=== PATIENT | male | born 1995 | race Caucasian/White ===

== ENCOUNTER 2021-06-12 19:09 | Emergency (ER) | payer OTHER, SELFPAY ==
[2021-06-12 19:15] VITALS: BP 134/85; PULSE 91; RESP 16; TEMP 36.5; O2SAT 99; BMI 17.6
--- NOTE | 2021-06-12 19:42 | HMH.EDEYEP ---
ED Disposition Clinical Impression: Corneal abrasion Qualifiers: Encounter type: initial encounter Laterality: left Qualified Code(s): S05.02XA - Injury of conjunctiva and corneal abrasion without foreign body, left eye, initial encounter Disposition: Home, Self-Care Condition on Discharge: Good Instructions: DI for Eye Pain Prescriptions: Erythromycin Base [Erythromycin 1gm opth ointment] 1 applicatio OP QID 5 Days #3.5 gm Transmission Status: Pending to [facility] Referrals: Provider,Referral, [Primary Care Provider] - [facility] [Other] - Critical Care Critical Care Time: No Attestation: On 06/12/21, the high probability of a clinically significant, sudden or life threatening deterioration of the following system(s) required my full and direct attention, intervention and personal management. The time I documented below is in addition to time spent performing reported procedures but includes the following listed in this critical care notation. Medical Decision Making - Medical Records Medical records reviewed: Yes: I reviewed the patient's medical records. - Sean Inquiry Pt receiving controlled substance: No Vital Signs: 06/12/21 19:15 Temperature 97.7 F Temperature Source Oral Pulse Rate [Right] 91 H Respiratory Rate 16 Blood Pressure [Right Arm] 134/85 Blood Pressure Mean [Right Arm] 101 Blood Pressure Source [Right Arm] Automatic Cuff 02 Sat by Pulse Oximetry 99 Oxygen Delivery Method Room Air - Reevaluation(s) Time: 19:44 Reevaluation #1: Patient tolerated procedure well. No foreign body was removed. Evidence of small corneal abrasion. Antibiotic ointment applied. Patient needs follow-up with eye care and 24 hours. Given strict return precautions. Verbalized understanding. Medical Decision Narrative: 45-year-old male presenting with some pain in his left eye. Concern for foreign body. Eye exam will be performed. Tetanus up-to-date. Eye Problem HPI - General Chief complaint: Eye Problems Stated complaint: foreign object in his left eye Time Seen by Provider: 06/12/21 19:20 Mode of Arrival: Family Vehicle Limitations: vision Description of Symptoms (Recalled from ER Triage Doc. 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 Pt states he feels like something is still inside and scratching . There is redness and tearing to left eye. No visible FB noted. Pt states he is far sided and is supposed to wear prescription glasses although he broke them. L eye 20/100 and R eye 20/70. Pt has not used any medications. - History of Present Illness HPI Narrative: Is a 25-year-old male presented to the emergency department with some pain in his left. He states that he was working on his brakes when he felt something go into his. Is been having some pain since then. He is not having any significant pain in vision. He states that he is just having pain when he opens his. He denies any headache or focal weakness. No other injuries sustained. Tetanus up-to-date. No chest pain or shortness of breath and abdominal pain or vomiting. - Related Data Previous Rx's Medication Instructions Recorded Erythromycin Base [Erythromycin 1 applicatio OP QID 5 Days #3.5 gm 06/12/21 1gm opth ointment] Allergies Allergy/AdvReac Type Severity Reaction Status Date / Time No Known Allergies Allergy Unverified 09/14/17 14:56 [facility] History - Hepatitis A Screen Drug use history?: No High risk sexual behaviors?: No History of sexually transmitted infection?: No Currently employed?: No Childcare worker?: No Do you have indoor plumbing?: Yes Do you have electricity?: Yes Attestation statement:: This patient has been screened for Hepatitis A risk factors. I have reviewed the patient's past medical history: Yes ROS Obtained: Yes All systems reviewed & no additional complaints
[2021-06-12 19:56] VITALS: BP 128/79; PULSE 88; RESP 16; TEMP 36.6; O2SAT 99
== END 2021-06-12 19:59 | disposition home or self-care (01) ==
PROVIDERS: Emergency Provider Emergency Medicine
DX: S05.02XA Injury of conjunctiva and corneal abrasion without foreign body, left eye, initial encounter (principal)
CPT/HCPCS: 99282

== ENCOUNTER 2021-09-09 10:52 | Emergency (ER) | payer SELFPAY ==
[2021-09-09 10:53] VITALS: BP 136/84; PULSE 82; RESP 14; TEMP 36.6; O2SAT 99; BMI 21.0
--- NOTE | 2021-09-09 11:25 | HMH.EDGENADL ---
ED Disposition Clinical Impression: Lumbar strain Qualifiers: Encounter type: initial encounter Qualified Code(s): S39.012A - Strain of muscle, fascia and tendon of lower back, initial encounter Disposition: Home, Self-Care Condition on Discharge: Good Instructions: DI for Nausea -- Adult, DI for Low Back Pain Additional Instructions: Take ibuprofen as needed for low back pain. Zofran as needed for nausea. Off work today and tomorrow. Follow-up with primary care doctor if not improved in 2 to 3 days. Additional instructions for BACK PAIN: See your physician as soon as possible for further evaluation. Return immediately if back pain becomes intolerable, or if fever, numbness or weakness of your legs, loss of control of your bowels or bladder. Prescriptions: Ondansetron [Zofran 4mg ODT] 4 mg PO TIDP PRN #10 tab PRN Reason: Nausea And Vomiting Transmission Status: Pending to [id number] Referrals: Provider,Referral, [Primary Care Provider] - - Critical Care Critical Care Time: No Attestation: On 09/09/21, the high probability of a clinically significant, sudden or life threatening deterioration of the following system(s) required my full and direct attention, intervention and personal management. The time I documented below is in addition to time spent performing reported procedures but includes the following listed in this critical care notation. Medical Decision Making - Sean Inquiry Pt receiving controlled substance: No Vital Signs: 09/09/21 10:53 Temperature 97.8 F Temperature Source Oral Pulse Rate [Right Radial] 82 Respiratory Rate 14 Blood Pressure [Right Arm] 136/84 Blood Pressure Mean [Right Arm] 101 Blood Pressure Source [Right Arm] Automatic Cuff Blood Pressure Position [Right Arm] Sitting 02 Sat by Pulse Oximetry 99 Oxygen Delivery Method Room Air - Lab Data Lab Results 09/09/21 13:05: Urine Color Yellow, Urine Appearance Clear, Urine pH 6.5, Ur Specific [place] 1.015, Urine Protein Negative, Urine Glucose (UA) Negative, Urine Ketones Negative, Urine Blood Negative, Urine Nitrate Negative, Urine Bilirubin Negative, Urine Urobilinogen 4.0, Ur Leukocyte Esterase Negative Orders (Tests/Meds): ORDERS Category Date Time Status UA [Urinalysis and Microscopic] Stat Lab 09/09/21 13:05 Results - Radiology Data #1 Image(s): L-Spine Image Reviewed: Yes I have reviewed radiologist's interpretation PROCEDURE: XR LUMBAR SPINE 2-3V CLINICAL INDICATION: pain COMPARISON: No exams were available for comparison FINDINGS: No fracture or dislocation. No lytic or blastic change. There is normal mineralization. The joint spaces are well-preserved. No significant degenerative/arthritic changes. No erosive changes evident. Other findings:Spina bifida occulta of S1 IMPRESSION: No acute findings. Dictated by: Jayson Jain MD 09/09/2021 12:06 Jayson Jain MD in [place] 09/09/2021 12:06 General Adult HPI - General Chief complaint: Nausea/Vomiting/Diarrhea Stated complaint: nausea, lower back pain Time Seen by Provider: 09/09/21 11:25 Mode of Arrival: Ambulatory Limitations: No Limitations Description of Symptoms (Recalled from ER Triage Doc. by RN): Pt reports nausea and lower back pain that began lastnight. Pt states no vomitting, denies fevers or urinary symptoms. Pt states he may have ate something bad. - History of Present Illness HPI narrative: Complains of low back pain and nausea. States that last night at about 1 or 2 AM he stood up and then twisted to the left and suddenly had pain in his lower back. Pain is persisted ever since then and he has nausea without vomiting. His back pain increases when he twists to the left or to the right. He is able to bend over forwards but has pain when he tries to straighten back up. Denies any radiation of the legs. No numbness or weakness of the extremities. No loss of bowel or bladder
--- NOTE | 2021-09-09 11:30 | XR_ITS ---
PROCEDURE: XR LUMBAR SPINE 2-3V CLINICAL INDICATION: pain COMPARISON: No exams were available for comparison FINDINGS: No fracture or dislocation. No lytic or blastic change. There is normal mineralization. The joint spaces are well-preserved. No significant degenerative/arthritic changes. No erosive changes evident. Other findings:Spina bifida occulta of S1 IMPRESSION: No acute findings. Dictated by: Jayson Jain MD 09/09/2021 12:06 Jayson Jain MD in [place] 09/09/2021 12:06
[2021-09-09 13:10] LABS: Microscopic, Urine URINE MICROSCOPIC (MICROSCOPIC)
[2021-09-09 13:12] LABS: Appearance,Urine CLEAR (Clear); Bilirubin,Urine Negative (Negative); Blood, Urine Negative (Negative); Color,Urine YELLOW (Yellow); Glucose,Urine (UA) Negative (Negative); Ketones,Urine Negative (Negative); Leukocyte Esterase,Urine Negative (Negative); Nitrate,Urine Negative (Negative); PH,Urine 6.5 (5.0-8.5); Protein,Urine Negative (Negative); Specific Gravity, Urine 1.015 (1.005-1.030)
[2021-09-09 13:29] VITALS: BP 124/78; PULSE 62; RESP 18; TEMP 36.9; O2SAT 100
[2021-09-09 13:29] LABS: Squamous Epithelial Cell,Urine Occasional #/hpf (0-5)
== END 2021-09-09 13:30 | disposition home or self-care (01) ==
PROVIDERS: Emergency Provider Emergency Medicine
DX: S39.012A Strain of muscle, fascia and tendon of lower back, initial encounter (principal)
CPT/HCPCS: 72100; 81001; 99282